=== PATIENT | male | born 1965 | race Caucasian/White ===

== ENCOUNTER 2016-08-31 19:03 | Emergency (ER) | payer SELFPAY ==
[~2016-08-31] VITALS: Ht 167.6 cm; Wt 85.0 kg
[~2016-08-31 19:03] MED LIST: HYDR-906 PO; NAPR-688 PO; RANI150T9 PO
[2016-08-31 19:55] VITALS: Ht 167.6 cm; Wt 85.0 kg
== END 2016-08-31 23:36 | disposition left against medical advice (07) ==
LOC: E/R 19:03
DX: Z53.21 Procedure and treatment not carried out due to patient leaving prior to being seen by health care provider (principal)

== ENCOUNTER 2016-10-07 20:34 | Emergency (ER) | payer BC ==
[~2016-10-07] VITALS: Ht 172.7 cm; Wt 85.0 kg
[2016-10-07 20:47] VITALS: Ht 172.7 cm; Wt 85.0 kg
--- NOTE | 2016-10-07 21:38 | ERD ---
ER Documentation Chief Complaint Date/Time DATE: 10/07/16 TIME: 21:37 Chief Complaint lac to R hand 3 and 4th fingers HPI 51-year-old [id number] male presented ED with laceration to his right hand. Patient was walking with a coffee mug at home, when he was tripped by his dog. He fell and the mug broke, lacerated his right hand at the base of the index, middle, and ring finger.. He does not remember when his last tetanus update was. This happened about 30 minutes prior to arrival. Patient reports heavy bleeding from the wound. He is unable to flex or extend his right index finger, he also reports the tip of his right index finger feeling numb. ROS All systems reviewed and are negative except as per history of present illness. Medications Home Meds Reported Medications Ibuprofen* (Ibuprofen*) 200 Mg Capsule, 200 MG PO Q6, CAP 10/07/16 Discontinued Scripts Ranitidine Hcl* (Zantac*) 150 Mg Tablet, 150 MG PO BID Y for EPIGASTRIC PAIN, # 30 TAB Prov:STACIA HERNÁNDEZ DO 02/02/16 Hydrocodone/Acetaminophen ([place] 5-325 Tablet) 1 Each Tablet, 1 EACH PO Q6, #14 TAB Prov:EDGARSTACIA DO 02/02/16 Naproxen* (Naproxen*) 500 Mg Tablet, 500 MG PO BID, #28 TAB Prov:EDGARSTACIA DO 02/02/16 Allergies Allergies: Coded Allergies: No Known Drug Allergies (Verified Allergy, Mild, 10/07/16) PMhx/Soc History of Surgery: Yes (APPENDIX, NASAL POLYP REMOVAL) Anesthesia Reaction: No Hx Respiratory Disorders: No Hx Cardiac Disorders: No Hx Psychiatric Problems: No Hx Miscellaneous Medical Probl: No Hx Alcohol Use: No Hx Substance Use: No Hx Tobacco Use: Yes Smoking Status: Current every day smoker Physical Exam Vitals Vital Signs Date Time Temp Pulse Resp B/P Pulse Ox O2 Delivery O2 Flow Rate FiO2 10/08/16 00:35 97.6 71 20 104/70 97 Room Air 10/07/16 22:49 97.6 73 20 102/69 98 Room Air 10/07/16 20:47 98.7 98 24 117/86 100 Physical Exam General impression: Well-developed, well-nourished. Alert, oriented, in no acute distress Head: Normocephalic, atraumatic. Eyes: PERRL, EOM normal. Sclerae are normal. Conjunctiva not injected. Respiration: Normal respiratory effort. Lungs clear to auscultate bilaterally. No wheezes, rales or rhonchi. Cardiovascular: Regular rate and rhythm. No murmurs or extra heart sounds. Abdomen: Abdomen normal to inspection. Nontender. No masses or organomegaly. Bowel sounds normal. Back: Normal to inspection. No midline spine tenderness. No CVA tenderness. Extremities: Complex skin avulsion and laceration noted on the palmar right hand extending from base of the right index finger through base of the right ring finger. The laceration is approximately 5 cm long. Pulsatile bleeding noted from the base of the right index finger. Normal flexion and extension of all fingers except for the right index finger, patient unable to move the right index finger. Decreased capillary refill and sensation of the right index finger. Right hand otherwise normal. Neuro: Mental status normal, speech normal. [employer] grossly intact. Skin: Normal turgor. No rash or lesions. Psych: Normal mood and affect. Result Diagram: 10/07/16222910/07/162229 Results 24 hrs Laboratory Tests Test 10/07/16 22:30 White Blood Count 14.210^3/ul Red Blood Count 5.0510^6/ul Hemoglobin 14.2g/dl Hematocrit 43.7% Mean Corpuscular Volume 86.5fl Mean Corpuscular Hemoglobin 28.1pg Mean Corpuscular Hemoglobin Concent 32.5g/dl Red Cell Distribution Width 13.9% Platelet Count 16986^3/UL Mean Platelet Volume 10.7fl Neutrophils % 60.8% Lymphocytes % 29.8% Monocytes % 7.5% Eosinophils % 1.1% Basophils % 0.3% Nucleated Red Blood Cells % 0.0/100WBC Neutrophils # 8.710^3/ul Lymphocytes # 4.210^3/ul Monocytes # 1.110^3/ul Eosinophils # 0.210^3/ul Basophils # 0.010^3/ul Nucleated Red Blood Cells # 0.010^3/ul Prothrombin Time 12.6Sec Prothrombin Time Ratio 1.0 INR International Normalized Ratio 0.94 Activated Partial Thromboplast Time 23.0Sec Sodium Level 137mmol/L Potassium Level 4.2mmol/L Chloride Level 103mmol/L Carbon Dioxide Level 28mmol/L Anion Gap 10 Blood Urea Nitrogen 21mg/dl Creatinine 0.98mg/dl Glucose Level 156mg/dl Calcium Level 9.6mg/dl Total Bilirubin 0.0mg/dl Direct Bilirubin 0.00mg/dl Indirect Bilirubin 0.0mg/dl Aspartate Amino Transf (AST/SGOT) 29IU/L Alanine Aminotransferase (ALT/SGPT) 49IU/L Alkaline Phosphatase 77IU/L Total Protein 7.2g/dl Albumin 4.2g/dl Globulin 3.00g/dl Albumin/Globulin Ratio 1.40 Current Medications Medications (Trade) Dose Ordered Sig/Dinesh Route PRN Reason Start Time Stop Time Status Last Admin Dose Admin Lidocaine (Xylocaine 1% (Mdv) 20 ml) 20 ml ONCE ONCE SC 10/07/16 22:00 10/07/16 22:01 DC Diphtheria/ Tetanus/Acell Pertussis (Adacel) 0.5 ml ONCE ONCE IM* 10/07/16 22:00 10/07/16 22:01 DC 10/07/16 22:12 Acetaminophen/ Hydrocodone Bitart ([place] (5/325)) 1 tab ONCE ONCE PO 10/07/16 22:00 10/07/16 22:01 DC 10/07/16 22:11 Morphine Sulfate (morphine) 4 mg ONCE ONCE IM 10/07/16 22:30 10/07/16 22:31 DC 10/07/16 22:10 Ondansetron HCl 4 mg 4 mg ONCE STAT ODT 10/07/16 22:03 10/07/16 22:05 DC 10/07/16 22:11 Sodium Chloride 1,000 ml @ 1,000 mls/hr Q1H ONCE IV 10/07/16 22:30 10/07/16 23:29 DC 10/07/16 22:42 Cefazolin Sodium (Ancef 1 Gm/50 ml (Pmx)) 50 ml @ 100 mls/hr ONCE IVPB 10/07/16 22:30 10/07/16 22:59 DC 10/07/16 22:42 PROCEDURE: XR Hand. CLINICAL INDICATION: Laceration of right hand. Possible retained foreign body TECHNIQUE: PA and oblique views of the right hand were obtained. COMPARISON: None available. FINDINGS: Mineralization is within normal limits. No fracture or osseous lesion is identified. Joint spaces are preserved. Soft tissue laceration and bandaging along the palmar aspect of the metacarpal heads is noted. There is no evidence of radiopaque foreign body. No radiopaque foreign body is present. RPTAT:HJJR IMPRESSION: Palmar soft tissue laceration and bandaging without osseous abnormality or retained radiopaque foreign body of the right hand on this limited two-view examination. Signed By: Tamir Amezcua D.o 10/07/2016 10:50:13 PM Procedures/MDM Otherwise healthy 51-year-old male presents to ED with laceration of his right hand. Tdap given to the patient in the ED. patient was given [place] 5/325 p.o., morphine 4 mg IM, and Zofran 4 mg ODT in the ED. Tourniquet using manual BP cuff is applied to patient's right upper arm to control the bleeding. Tourniquet removed after 5 minutes of application. Patient's bleeding is controlled at this time. Because of the complex nature of patient's injury, as well as possible tendon, nerve, and vascular damage of his right index finger, patient will be transferred to a facility that has head surgeon. X-ray was obtained, it is limited due to patient's head position. No fractures or foreign body was seen on x-ray. Patient reports feeling faint in the ED. He has lost significant amount of blood from the injury, normal saline 1 L bolus is given to the patient. CBC, CMP, PT/PTT is obtained, results pending at this time. Patient also given Ancef 1 g IV piggyback. Patient is currently transferred to ED 1 under the care of Dr. Conley. Dr. Conley has also examined the patient and agrees with her care. Departure Diagnosis: Primary Impression: Laceration Condition: Stable ADRIAN OBRIEN NP Oct 07, 2016 21:38
[2016-10-07] MEDS ORDERED: DIPHTH/TET/ACEL PERTUSS (ADULT) 0.5 ML VIAL IM* ONE (22:00)
[2016-10-07] MEDS ORDERED: HYDROCODONE/APAP (5/325) TAB PO ONE (22:00)
[2016-10-07] MEDS ORDERED: LIDOCAINE 1% (MDV) 20 ML INJ SC ONE (22:00)
[2016-10-07] MEDS ORDERED: ONDANSETRON (ODT) 4 MG TAB ODT STA (22:03)
[2016-10-07] MEDS ORDERED: CEFAZOLIN 1 GM/50 ML (PMX) 50 ML IVPB SCH (22:30)
[2016-10-07] MEDS ORDERED: SOD CHLORIDE 0.9% 1,000 ML IV ONE (22:30)
[2016-10-07] MEDS ORDERED: morphine 10 MG INJ IM ONE (22:30)
--- NOTE | 2016-10-07 22:50 | RADRPT ---
PROCEDURE: XR Hand. CLINICAL INDICATION: Laceration of right hand. Possible retained foreign body TECHNIQUE: PA and oblique views of the right hand were obtained. COMPARISON: None available. FINDINGS: Mineralization is within normal limits. No fracture or osseous lesion is identified. Joint spaces are preserved. Soft tissue laceration and bandaging along the palmar aspect of the metacarpal heads is noted. There is no evidence of radiopaque foreign body. No radiopaque foreign body is present. RPTAT:HJJR IMPRESSION: Palmar soft tissue laceration and bandaging without osseous abnormality or retained radiopaque forei gn body of the right hand on this limited two-view examination. Physician Breana Date Time Electronically viewed and signed by Physician Breana on 10/07/2016 22:50 /
[2016-10-07] MEDS ORDERED: IBUP200C PO (22:54)
[2016-10-07 22:57] LABS: ADD SCAN DIFF NO
[2016-10-07 22:58] LABS: BASOPHILS % 0.3 % (0.0-2.0); EOSINOPHILS # 0.2 10^3/ul (0.0-0.5); EOSINOPHILS % 1.1 % (0.0-7.0); HEMATOCRIT 43.7 % (42.0-52.0); HEMOGLOBIN 14.2 g/dl (14.0-18.0); LYMPHOCYTES # 4.2 10^3/ul (0.8-2.9); LYMPHOCYTES % 29.8 % (15.0-51.0); MEAN CORPUSCULAR HEMOGLOBIN 28.1 pg (29.0-33.0); MEAN CORPUSCULAR HGB CONC 32.5 g/dl (32.0-37.0); MEAN CORPUSCULAR VOLUME 86.5 fl (82.0-101.0); MEAN PLATELET VOLUME 10.7 fl (7.4-10.4); MONOCYTE # 1.1 10^3/ul (0.3-0.9); MONOCYTES % 7.5 % (0.0-11.0); NEUTROPHIL # 8.7 10^3/ul (1.6-7.5); NEUTROPHILS % 60.8 % (39.0-77.0); PLATELET COUNT 215 10^3/UL (140-415); RED BLOOD COUNT 5.05 10^6/ul (4.70-6.10); RED CELL DISTRIBUTION WIDTH 13.9 % (11.5-14.5); WHITE BLOOD COUNT 14.2 10^3/ul (4.8-10.8)
[2016-10-07 23:10] LABS: INR 0.94; PROTIME 12.6 Sec (12.2-14.2)
[2016-10-07 23:13] LABS: ALBUMIN 4.2 g/dl (3.3-4.9); ALBUMIN/GLOBULIN RATIO 1.4; CALCIUM 9.6 mg/dl (8.4-10.2); CREATININE 0.98 mg/dl (0.61-1.24); POTASSIUM 4.2 mmol/L (3.5-5.1); TOTAL PROTEIN 7.2 g/dl (6.1-8.1)
[2016-10-08 00:35] VITALS: BP 104/70; PULSE 71; RESP 20; TEMP 97.6
--- NOTE | 2016-10-08 01:50 | QN ---
Documentation Comment The patient is a 51-year-old male, presenting to the ER because of right palm laceration from a coffee mug after he fell shortly prior to arrival. I examined the patient with a PA in ED 2. He has a complex laceration at the base of the index, middle and fourth finger with active bleeding. However there is no evidence for arterial bleeding. The bleeding was controlled with compression. He is able to flex the fingers; however extension testing was limited due to his discomfort. He will required a hand surgeon due to the complexity of the laceration that possibly involve the tendons and vascular injuries; he is right-hand dominant. He was treated with IV fluid Tdap IM and pain medication Consultation: I discussed the patient at [facility] at 11:45 PM, who accepted the patient at [facility] Diabetic impression: Right palm complex laceration Disposition: The patient will be transferred via ambulance DONNELL ORTEZ MD Oct 08, 2016 01:50
== END 2016-10-08 00:50 | disposition short-term general hospital (02) ==
LOC: FTE 20:34 → E/R 10-08 00:50
DX: S61.214A Laceration without foreign body of right ring finger without damage to nail, initial encounter (principal); F17.210 Nicotine dependence, cigarettes, uncomplicated; S61.210A Laceration without foreign body of right index finger without damage to nail, initial encounter; W54.1XXA Struck by dog, initial encounter; Y92.009 Unspecified place in unspecified non-institutional (private) residence as the place of occurrence of the external cause; Z23 Encounter for immunization
CPT/HCPCS: 73130; 80053; 85025; 85610; 85730; 90715; J0690; J2270; J7030; Z7610; 90471; 96372; 96374

== ENCOUNTER 2018-04-02 04:46 | Emergency (ER) | END 2018-04-02 05:52 | disposition home or self-care (01) ==

== ENCOUNTER 2019-04-05 13:53 | Emergency (ER) | payer BC ==
[~2019-04-05] VITALS: Wt 85.9 kg
[~2019-04-05 13:53] MED LIST changes: +ACET500C5 PO; -HYDR-906 PO; +IBUP-1982 PO; +IBUP800T48 PO; -NAPR-688 PO; -RANI150T9 PO; +TRAM50TA2 PO
[2019-04-05 14:17] VITALS: BP 128/82; PULSE 103; RESP 20
== END 2019-04-05 15:21 | disposition home or self-care (01) ==
LOC: E/R 13:53
DX: M25.571 Pain in right ankle and joints of right foot (principal); Z87.891 Personal history of nicotine dependence